=== PATIENT | female | born 1935 | race Two or more races ===

== ENCOUNTER 2018-08-13 16:55 | Emergency (ER) | payer BC, OTHER ==
[~2018-08-13] VITALS: Ht 162.6 cm; Wt 60.8 kg
[~2018-08-13 16:55] MED LIST: SYN.025 PO
[2018-08-13 16:59] VITALS: BP 164/98
--- NOTE | 2018-08-13 17:02 | NUR ---
PATIENT AMBULATED TO ER BED 9.
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
--- NOTE | 2018-08-13 17:23 | NUR ---
PT WAS ASKED TO CHANGE INTO GOWN
[2018-08-13] MEDS ORDERED: traMADol 50 MG TAB PO ONE (17:40)
--- NOTE | 2018-08-13 17:50 | NUR ---
PT TO CT VIA [facility]
--- NOTE | 2018-08-13 18:08 | NUR ---
RETURNED FROM CT VIA [facility]
[2018-08-13 19:03] VITALS: BP 135/78
== END 2018-08-13 19:03 | disposition home or self-care (01) ==
LOC: MED 16:55
DX: M54.5 Low back pain (principal); R41.0 Disorientation, unspecified; M54.6 Pain in thoracic spine; E78.5 Hyperlipidemia, unspecified; I10 Essential (primary) hypertension; Z85.828 Personal history of other malignant neoplasm of skin; Z79.899 Other long term (current) drug therapy
CPT/HCPCS: 70450; 71250; 72125; 99284

== ENCOUNTER 2019-08-23 18:13 | Emergency (ER) | payer OTHER ==
[~2019-08-23] VITALS: Ht 162.6 cm; Wt 59.0 kg
[2019-08-23 18:40] VITALS: BP 141/82
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
--- NOTE | 2019-08-23 18:43 | NUR ---
TO LOBBY A/W BED , AMBULATORY
--- NOTE | 2019-08-23 21:58 | NUR ---
DR. TERRAZAS AT BEDSIDE.
[2019-08-23 23:35] VITALS: BP 135/79
== END 2019-08-23 23:35 | disposition home or self-care (01) ==
LOC: MED 18:13
DX: M79.642 Pain in left hand (principal); M25.562 Pain in left knee; I10 Essential (primary) hypertension; E78.5 Hyperlipidemia, unspecified; Z86.39 Personal history of other endocrine, nutritional and metabolic disease; Z79.899 Other long term (current) drug therapy; W18.39XA Other fall on same level, initial encounter; Y92.59 Other trade areas as the place of occurrence of the external cause; Y93.89 Activity, other specified; Y99.8 Other external cause status
CPT/HCPCS: 73130; 73562; 81002; 99283